=== PATIENT | male | born 1945 | race Caucasian/White ===

== ENCOUNTER → 2016-11-21 | Outpatient (CLI) | payer OTHER ==
[~2016-11-21] MED LIST: ASPI-321 OR; CLOP1TAB15 PO; FENO48TA9 PO; FISH OI1 OR; GARLIC PO; LEVO50TA6 PO; LSN5 PO; METF-383 PO; METO50TA16 PO; MULT-190 PO; NTRGSL/4 SL; OMEG10007 PO; PLV75 PO; ROSU40TA PO; [UNRECOGNIZED DRUG - OTHER] OR; [UNRECOGNIZED DRUG - OTHER] OR
--- NOTE | 2016-11-21 22:06 | MYOCARDIAL PERFUSION SCAN ---
PCP: Dr. Jonathon Bashir. ORDERING PHYSICIAN: Dr. Singer. TIME: 19:46 p.m. PROCEDURE: 1. Myocardial perfusion study performed in multiple views/images. 2. Exercise stress ECG per [facility] protocol. INDICATIONS: 1. CAD. 2. Angina. 3. Hypertension. CONSENT: Informed written consent was obtained. EXERCISE STRESS ECG: Baseline ECG demonstrated sinus rhythm at 71 beats per minute. Normal ECG. Exercise ECG demonstrated no significant ST changes. There was no arrhythmia. No chest pain reported. Mild dyspnea was reported. Study was terminated once target heart rate was obtained, but mostly due to the fact that he was having difficulty coordinating ambulation on a treadmill. Maximum heart rate was 133 beats per minute representing 91% maximum predicted heart rate. The resting blood pressure was 118/65 mmHg. Peak blood pressure was 158/68 mmHg. Poor exercise tolerance. 4.7 mets. Exercised 3 minutes 4 seconds in the standard [facility] protocol PROCEDURAL DETAILS: For the stress portion of the study 33.4 mCi of technetium-99m Cardiolite was injected intravenously at 11:35 a.m. on 11/21/2016. Fifteen minutes following the injection, imaging of the heart was performed in multiple projections. For the rest portion of the study, 11 mCi of technetium-99m Cardiolite was injected intravenously at 9:25 a.m. on the same day. One hour following the injection, imaging of the heart was performed in the same projections. FINDINGS: Rotating raw imaging demonstrated no significant motion artifact or lung uptake. Heart size appeared normal. Myocardial perfusion demonstrated a large area of reduced uptake involving the anterolateral wall (severely reduced uptake), and a lateral and inferolateral wall (moderately reduced uptake) from the base to mid left ventricle. This was reversible in post-stress imaging. Wall motion demonstrated hypokinesis in the anterolateral and lateral egan from base to mid ventricle. LEFT VENTRICULAR SYSTOLIC FUNCTIONL: EF of 58%. No significant transient ischemic dilation. IMPRESSION AND PLAN: 1. Abnormal myocardial perfusion study suggesting a large area of ischemia involving the base to mid portions of the anterolateral, lateral, and inferolateral egan. 2. No significant infarct suggested. 3. Hypokinesis of the anterolateral and lateral wall from base to mid ventricle. 4. Normal LV systolic function, ejection fraction 58%. 5. No chest pain. 6. No arrhythmia. 7. Appropriate blood pressure response to exercise. 8. Negative exercise ECG for ischemia at 91% maximum predicted heart rate. 9. Poor exercise tolerance. 10. The patient was notified of abnormal findings. He has not had any further angina as an outpatient. He will be seen in the office to discuss treatment plan.
== END | disposition home or self-care (01) ==
LOC: C.NUCL 09:01
PROVIDERS: ATTEND Internal Medicine Cardiovascular Disease
DX: I25.119 Atherosclerotic heart disease of native coronary artery with unspecified angina pectoris (principal); E78.00 Pure hypercholesterolemia, unspecified; I10 Essential (primary) hypertension

== ENCOUNTER → 2016-12-04 | Outpatient (CLI) | payer OTHER ==
--- NOTE | 2016-12-04 10:33 | DIAGNOSTIC IMAGING REPORT ---
CHEST 2 VIEWS ROUTINE CLINICAL HISTORY: I10 [id number] CAD in apache [id number] Angina pectoris COMPARISON STUDY: No previous studies for comparison. FINDINGS: The bones soft tissues and hemidiaphragms are normal. The cardiomediastinal silhouette is normal. The lungs are clear. The pulmonary vasculature is normal. IMPRESSION: Negative chest. Electronically signed by: Fam Mota M.D. 12/04/2016 10:32 AM Dictated Date/Time: 12/04/2016 10:31 AM
[2016-12-04 10:52] LABS: HEMATOCRIT 39.7 % (42-52); MEAN CELL VOLUME 88.6 fL (80-100); MEAN CORPUSCULAR HEMOGLOBIN 29.9 pg (25-34); MEAN CORPUSCULAR HGB CONC 33.8 g/dl (32-36); MEAN PLATELET VOLUME 10.3 fL (7.4-10.4); PLATELET COUNT 266 K/uL (130-400); RED BLOOD COUNT 4.48 M/uL (4.7-6.1)
[2016-12-04 11:04] LABS: PROTHROMBIN TIME (PATIENT) 10.7 SECONDS (9.0-12.0)
[2016-12-04 11:27] LABS: BLOOD UREA NITROGEN 11 mg/dl (7-18); BUN/CREATININE RATIO 11.4 (10-20); CALCIUM 8.6 mg/dl (8.5-10.1); CARBON DIOXIDE 28 mmol/L (21-32); CHLORIDE 107 mmol/L (98-107); GLUCOSE 109 mg/dl (70-99); POTASSIUM 4.2 mmol/L (3.5-5.1); SODIUM 141 mmol/L (136-145)
== END | disposition home or self-care (01) ==
LOC: C.RAD1850 10:05
PROVIDERS: ATTEND Internal Medicine Cardiovascular Disease
DX: I10 Essential (primary) hypertension (principal); I25.10 Atherosclerotic heart disease of native coronary artery without angina pectoris; R55 Syncope and collapse; R94.39 Abnormal result of other cardiovascular function study

== ENCOUNTER 2016-12-11 08:21 | Inpatient (IN) | payer OTHER ==
[2016-12-11] VITALS (14 sets, daily range): BP systolic 113–142; BP diastolic 66–84; PULSE 64–86; TEMP 36.5–36.8; O2SAT 92–97; Ht 172.7 cm; Wt 76.4 kg
[~2016-12-11] VITALS: Ht 172.7 cm; Wt 76.4 kg
[~2016-12-11 08:21] MED LIST changes: -CLOP1TAB15 PO; -GARLIC PO; -LEVO50TA6 PO; -LSN5 PO; -METF-383 PO; -METO50TA16 PO; -MULT-190 PO; -NTRGSL/4 SL; -OMEG10007 PO; -PLV75 PO; -ROSU40TA PO
[2016-12-11] MEDS ORDERED: LEVO50TA6 PO (09:13)
[2016-12-11] MEDS ORDERED: METF-383 PO (09:13)
[2016-12-11] MEDS ORDERED: METO50TA16 PO (09:13)
[2016-12-11] MEDS ORDERED: LSN5 PO (09:13)
[2016-12-11] MEDS ORDERED: ROSU40TA PO (09:13)
[2016-12-11] MEDS ORDERED: NTRGSL/4 SL (09:13)
[2016-12-11] MEDS ORDERED: GARLIC PO (09:13)
[2016-12-11] MEDS ORDERED: OMEG10007 PO (09:13)
--- NOTE | 2016-12-11 09:43 | History & Physical Bridge Note ---
H&P Re-Evaluation Bridge Note: I have examined the patient, reviewed the History & Physical and in the interval since the performance of the History & Physical I have noted the following changes of clinical significance: No changes noted
--- NOTE | 2016-12-11 09:44 | Procedure Note ---
Pre-Mod Sedation Assessment General Date of Moderate Sedation: Dec 11, 2016. Vital Signs: Vital Signs Past 12 Hours Date Time Temp Pulse Resp B/P Pulse Ox O2 Delivery O2 Flow Rate FiO2 12/11/16 08:54 36.5 65 16 142/79 97 Room Air Review Cardiovascular: regular rate, rhythm Abdomen: non tender, soft Lungs: lungs clear Pre-Sedation Airway Assessment Short Thick Neck: No Hx of Sleep Apnea: No Smoking Status: Never Smoker Procedure Planning Contraindications-for Mod Sed: None Yes Notes The planned sedation has been discussed with the patient and consent obtained. I have identified the patient, determined the appropriateness of sedation and have assessed the patient immediately prior to the procedure. All medicine(s) and interventions are by my order.
[2016-12-11] MEDS ORDERED: HEPARIN SOD (PORCINE) 1000 UNIT/ML 10 ML VIAL ONE (13:02)
[2016-12-11] MEDS ORDERED: NiCARDipine HCL INJ 2.5 MG/ML 10 ML AMP ONE (13:02)
[2016-12-11] MEDS ORDERED: FENTANYL CITRATE INJ 50 MCG/1 ML 2 ML VIAL ONE ×3 (13:03→15:45)
[2016-12-11] MEDS ORDERED: MIDAZOLAM HCL 1 MG/ML 2ML VIAL ONE ×3 (13:03→15:45)
[2016-12-11] MEDS ORDERED: NITROGLYCERIN/D5W 100MCG/ML 20ML SYR ONE (13:04)
--- NOTE | 2016-12-11 14:37 | Procedure Note ---
Post-Mod Sedation Assessment General Date of Moderate Sedation Dec 11, 2016. Vital Signs: Vital Signs Past 12 Hours Date Time Temp Pulse Resp B/P Pulse Ox O2 Delivery O2 Flow Rate FiO2 12/11/16 08:54 36.5 65 16 142/79 97 Room Air Review - Discharge Criteria Vital Signs Stable: Yes Alert/Oriented/Conversant: N/A Returned to Baseline Mental St: N/A Nausea Absent/Minimal: Yes Pain/Discomfort/Absent/Minimal: Yes Normal/Baseline Respirations: Yes Active Bleeding?: Yes
--- NOTE | 2016-12-11 14:53 | Cardiac Catheterization ---
Procedure Note Procedure Date Dec 11, 2016. Pre-Procedure Diagnosis Positive Stress Test, CAD AUC Score 9 Post-Procedure Diagnosis Severe CAD, Normal Intracardiac Pressures Procedure(s) Performed Coronary Angiography, Left Heart Cath Police Officer Crime Prevention Dr. Singer Snowboard Designer(s) Plunkett Estimated Blood Loss < 20 ml Medication(s) Fentanyl, Heparin, Nicardipine, Versed, Lidocaine 1% Summary of Findings Coronary angiography: 1. Left main coronary artery: Distal LM CA 20%. 2. Left anterior descending: The LAD had calcifications noted in the proximal to mid section. Proximal LAD 30%. Mid LAD diffuse 40%. Distal LAD 40%. Small caliber D1 with diffuse 80% stenosis in the midportion. Small D2. 3. Circumflex: The circumflex is a large caliber vessel. Proximal circumflex 40%. Mid circumflex 95% at bifurcation of large OM1. Proximal OM1 98%. Distal circumflex 70% and small caliber in this area, at the bifurcation of a large OM2. Ostial OM2 80%. 4. 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 It was visualized with AL1 diagnostic catheter. Mid RCA 90% followed by 100% occlusion. It fills via right to right bridging collaterals and [id number] collaterals. Distal RCA 70%. Small PDA without angiographic evidence of CAD. Left heart catheterization: 1. Left ventriculography was not performed. 2. Mildly elevated LVEDP; 13 mmHg. 3. No significant aortic stenosis. Peak to peak gradient across the aortic valve was approximately 4 mmHg. Impression: 1. Severe CAD within the circumflex system, including large OM1 and OM2 vessels. 2. Severe CAD within the RCA, with right to right and [id number] collaterals. 3. Severe CAD involving small caliber D1. 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 5. Nonobstructive CAD involving the left main coronary artery, LAD, and proximal circumflex. 6. No significant aortic stenosis. 7. Mildly elevated LVEDP. Plan: 1. Interventional Cardiology was asked to review the images and consider PCI of circumflex/OM system. Hemodynamics Rest Ao: 123/54 Final Ao: 139/61 LV: 137/2 with LVEDP 13 mmHg Recommendations PCI without planned CABG Specimens None Radiation Exposure (mGy) 1307 mGy. Fluoro time 9.8 min Contrast (mls) 105 ml Procedural Complication(s) None Disposition remained in cathead operator for PCI ACC Data Cardiac Status Clinical evaluation leading to the procedure CAD Presntation: Stable angina, Positive Stress Test Anginal Classification: CCS III Heart Failure: No Cardiogenic Shock w/in 24Hrs: No Cardiac Arrest w/in 24Hrs: No Imaging studies past 6 months: Yes Stress studies past 6 months: Yes Standard Exercise Stress Test: Yes - Negative Stress Echocardiogram: No Stress Testing w/SPECT MPI: Yes - Positive, Risk/Extent of Ischemia (High) Cardiac CTA: No Coronary Anatomy Dominant: Right Left Main (% Stenosis): Distal (20%) LAD (% Stenosis): Proximal (30%), Mid (40%), Distal (40%) D1 (% Stenosis): Mid (80%) D2 (% Stenosis): Normal Circumflex (% Stenosis): Proximal (40%), Mid (95%), Distal (70%) OM1 (% Stenosis): Proximal (98%) OM2 (% Stenosis): Ostial (80%) RCA (% Stenosis): Mid (90% followed by 100%), Distal (70%) R PDA (% Stenosis): Normal Left Ventricular Angiography EF (%): n/a Diagnostic Physician's Name: Niels Singer MD Status: Elective Closure Device Percutaneous Entry Location: Radial Closure Device: Radial Band Recommendations: PCI without planned CABG
[2016-12-11] MEDS ORDERED: EPTIFIBATIDE 2 MG/ML 10 ML VIAL IV ONE (16:12)
[2016-12-11] MEDS ORDERED: EPTIFIBATIDE 0.75 MG/ML 75MG VIAL IV ONE (16:12)
[2016-12-11] MEDS ORDERED: CLOPIDOGREL BISULFATE 300 MG TAB PO ONE (16:14)
[2016-12-11] MEDS ORDERED: ACETAMINOPHEN 325 MG TAB PO PRN (17:00)
[2016-12-11] MEDS ORDERED: ONDANSETRON INJ 2 MG/ML 2 ML VIAL IV PRN (17:00)
[2016-12-11] MEDS ORDERED: EPTIFIBATIDE BOLUS / DRIP IV ONE (17:00)
[2016-12-11] MEDS ORDERED: NITROGLYCERIN 0.4 MG SL PER TAB CHARGE SL SCH (17:00)
[2016-12-11] MEDS ORDERED: SODIUM CHLORIDE 0.9% 1000ML 1,000 ML IV SCH (17:00)
[2016-12-11] MEDS ORDERED: ATROPINE SULFATE 0.1 MG/ML 5ML SYR IV PRN (17:00)
[2016-12-11] MEDS: EPTIFIBATIDE INJ 75 MG PREMIXED IV SCH (18:10)
[2016-12-11] MEDS: METOPROLOL TARTRATE 50 MG TAB PO SCH (21:42)
--- NOTE | 2016-12-11 23:52 | Cardiac Catheterization ---
Procedure Note Procedure Date Dec 11, 2016. Pre-Procedure Diagnosis Angina, Positive Stress Test AUC Score 7 Post-Procedure Diagnosis Severe CAD, Successful PCI Procedure(s) Performed PTCA, Drug Eluting Stent Operating Room Orderly Dr. Triana Fitter / Welder(s) Dimitrios Estimated Blood Loss 25 Medication(s) Fentanyl, Heparin, Nitroglycerin, Versed, Lidocaine 1% Summary of Findings Indication: Positive stress test For full coronary angiography details please see cath report from Dr. Singer from today. Briefly patient with grossly positive stress test with significant lateral wall ischemia. Found to have severe mid circumflex, OM1, OM2 disease and decision made to proceed with intervention. Arterial Closure: TR Band PCI: Antithrombotic therapy: Heparin, Plavix, integrilin Procedure: BMW wire place in 1st OM Prowater wire placed in 2nd OM Mid circumflex, ostial OM2 lesion pre-dilated with 2.0 compliant balloon Unable to pass 2.0 balloon into 1st OM. Predilated with 1.5 then new 2.0 balloon. Predilated mid circumflex and OM2 lesions with 2.5 balloon. Unable to deliver stent to OM2 lesion due to mid circumflex stenosis/tortuosity Mid OM2 pre-dilated with 3.0 compliant balloon with appropriate expansion at nominal pressures Still unable to deliver MARIO to OM2 lesion despite use of long BMW wire as saul wire. Prowater/short BMW removed. Long BMW exchanged via OTW Xenith Bankon for mailman wire. Guideliner placed into mid circumflex with the aid of OTW ballon. 2.5 x [address] to OM2 Stent post-dilated with stent balloon At this point patient restless, significant contrast and radiation used - as patient chest pain free with no flow limiting dissection decision made to complete procedure At completion of procedure OM2 stent reasonably well expanded without significant residual stenosis. Distal circumflex subtotally occluded after stent placement. Mid circumflex with residual 50% stenosis. OM1 with residual 90% proximal stenosis. Summary: 1. Complex severe circumflex disease 2. Successful PCI of OM2 with single MARIO (Resolute 2.5 x 14). Stent placement complicated by small distal circumflex subtotal occlusion 3. PTCA of OM1 and mid circumflex with severe, moderate residual stenosis. Recommendations: Admit to Telemetry for further observation Continue integrilin for 12hrs Loaded with Plavix 600 mg in photographic laboratory technician. Continue DAPT with aspirin and plavix for 1 year. High-dose statin, Beta-estefany, GENI per Dr. Singer With high radiation exposure patient counseled on signs and symptoms of radiation skin injury. In the setting of moderate-severe residual mid circumflex/OM1 disease and significant ischemia on recent stress will plan for repeat PCI attempt with stent placement to OM1/circumflex bifurcation via femoral artery in 1-2 weeks. Hemodynamics Rest Ao: 139/61/94 Final Ao: 154/73/109 LV: n/a Recommendations PCI without planned CABG Specimens None Radiation Exposure (mGy) 6999 Contrast (mls) 280 Visipaque Fluids (cc crystalloids) 413 Drains None Anesthesia Moderate Procedural Complication(s) None Disposition PCU ACC Data Cardiac Status Clinical evaluation leading to the procedure CAD Presntation: Positive Stress Test Anginal Classification: CCS III Heart Failure: No, NYHA Class: CCS I Cardiogenic Shock w/in 24Hrs: No Cardiac Arrest w/in 24Hrs: No Standard Exercise Stress Test: No Stress Echocardiogram: No Stress Testing w/SPECT MPI: Yes - Positive, Risk/Extent of Ischemia (High) Cardiac CTA: No Coronary Anatomy Circumflex (% Stenosis): Mid (90) OM1 (% Stenosis): Proximal (99) OM2 (% Stenosis): Ostial (95) Diagnostic Physician's Name: Thong Triana MD Closure Device Percutaneous Entry Location: Radial Closure Device: Radial Band Recommendations: PCI without planned CABG Lesion Segment Name: OM2 Culprit Artery: Yes Stenosis Prior to Rx (%): 95 Chronic Total Occlusion: No IVUS: No FFR: No Pre-Procedure RALPH Flow: 3 Previously Treated Lesion: No Lesion Complexity: High/C Lesion Length (mm): 12 Thrombus Present: No Bifurcation Lesion: Yes Guidewire Across Lesion: Yes Guidewire: Stenosis Post-Procedure (%): 5 Post-Procedure RALPH Flow: 3 Device(s) Deployed: Yes Type of Device(s): 2.5 x 15 Resolute MARIO Lesion #2 Segment Name: mid circumflex Culprit Artery: Yes Stenosis Prior to Rx (%): 90 Chronic Total Occlusion: No IVUS: No FFR: No Pre-Procedure RALPH Flow: 3 Previously Treated Lesion: No Lesion Complexity: High/C Lesion Length (mm): 15 Thrombus Present: No Bifurcation Lesion: Yes Guidewire Across Lesion: Yes Intraprocedure Events Significant Dissection: No Perforation: No
[2016-12-12] VITALS (7 sets, daily range): BP systolic 117–147; BP diastolic 66–83; PULSE 58–81; TEMP 36.7–37.3; O2SAT 94–97
[2016-12-12] MEDS: EPTIFIBATIDE INJ 75 MG PREMIXED IV SCH (02:20)
[2016-12-12] MEDS ORDERED: Integrelin infusion --> STOP ORDER ONE (05:00)
[2016-12-12] MEDS ORDERED: LEVOTHYROXINE 50 MCG TAB PO SCH (06:00)
[2016-12-12 07:56] LABS: BASO % 0.4 %; BASO ABS # 0.04 K/uL (0-0.2); COMPLETE YES; EOS % 3.3 %; HEMATOCRIT 40.5 % (42-52); IG% 0.2 %; LYMPH % 17.7 %; LYMPH ABS # 1.79 K/uL (1.2-3.4); MEAN CELL VOLUME 86.4 fL (80-100); MEAN CORPUSCULAR HEMOGLOBIN 30.1 pg (25-34); MEAN CORPUSCULAR HGB CONC 34.8 g/dl (32-36); MEAN PLATELET VOLUME 9.8 fL (7.4-10.4); MONO % 6.9 %; NEUT % 71.5 %; PLATELET COUNT 218 K/uL (130-400); RED BLOOD COUNT 4.69 M/uL (4.7-6.1)
[2016-12-12 08:27] LABS: BUN/CREATININE RATIO 12.3 (10-20); CALCIUM 8.8 mg/dl (8.5-10.1); CREATININE 0.95 mg/dl (0.60-1.40); POTASSIUM 3.9 mmol/L (3.5-5.1)
[2016-12-12] MEDS: METOPROLOL TARTRATE 50 MG TAB PO SCH (08:57)
[2016-12-12] MEDS ORDERED: INFLUENZA VIRUS QUAD VACCINE 0.5 ML SYR IM. ONE (09:00)
[2016-12-12] MEDS ORDERED: ROSUVASTATIN CALCIUM 20 MG TAB PO SCH (09:00)
[2016-12-12] MEDS ORDERED: LISINOPRIL 5 MG TAB PO SCH (09:00)
[2016-12-12] MEDS ORDERED: ASPIRIN 81 MG ECTAB PO SCH (09:00)
[2016-12-12] MEDS ORDERED: CLOPIDOGREL BISULFATE 75 MG TAB PO SCH (09:00)
[2016-12-12] MEDS ORDERED: INFLUENZA ADMINISTRATION CHARGE ONE (09:00)
[2016-12-12] MEDS ORDERED: PLV75 PO (14:54)
--- NOTE | 2016-12-12 14:58 | Discharge Instructions ---
Discharge Instructions Procedure Procedure Date: Dec 12, 2016. Reason for Visit: *Enmanuel To Do Abnormal Nuclear Stress Test. Discharge Discharge Date: Dec 12, 2016. Discharge Diagnosis: Coronary artery disease post cardiac stent Last Recorded Wt (Kilograms): 76.400 Medications Stopped Medication(s): Hold Metformin for 48 hours post procedure Anesthesia Post Anesthesia Instructions: Instructions Activity Recommendations: limitations as noted below Allergies: Coded Allergies: No Known Allergies (Verified , 01/18/10) Provider Instructions ACTIVITY RECOMMENDATIONS: It is common to feel weak and fatigue for a few days. * Do not drive or operate any motorized equipment for the next two days. * Limit stair usage (2 or 3 trips a day only) for the next three days. * Do not lift anything heavier than 10 pounds for the next three days. * Do not engage in vigorous exercise or any sports for the next five days. * You may shower the day after your procedure, but do not immerse the area for three days. Cleanse the site gently with soap and water. SPECIAL CARE INSTRUCTIONS: * You may replace the pressure dressing or band-aid the morning after the procedure. * After your procedure, it is normal to have a small bruise or small lump at the site. Examine your site daily for any change in the bruise or lump, redness, swelling, drainage or numbness. Notify your doctor if any change. BLEEDING: * If there is a small amount of bleeding at the site, lie down and apply firm pressure with a clean cloth for ten minutes. When the bleeding stops, lie quietly keeping the procedure limb straight for six hours. Notify your doctor as soon as possible. * If the bleeding does not stop after ten minutes or if there is a large amount of bleeding or spurting, call 911 immediately. Continue to lie down and hold firm pressure until help arrives. SKIN IRRITATION: * You may experience some redness and/or swelling in the area where radiation was administered. If any skin irritation occurs, please contact your family physician. FOLLOW UP VISIT: Keep any scheduled doctor appointments. Follow Up Additional Instructions: If increased arm swelling, redness, pain or decreased sensation. Call Dr. Triana [phone] Follow-up with: Will arrange for follow-up Procedure. Dr. Triana/Enmanuel's office will call you. Emma Rao Recommendations: Call your doctor if: * Temperature above 101 degrees * Pain not relieved by pain medicine ordered * There is increased drainage or redness from any incision * You have any unanswered questions or concerns. Your Doctors Instructions noted above were prepared by provider Abdullahi Triana. Patient Signature Section: Patient Instructions Signature Page Abdon Missy Patient (or Guardian) Signature/Date: I have read and understand the instructions given to me by my caregivers. Caregiver/RN/Doctor Signature/Date: The above-named patient and/or guardian has received patient instructions on this date. + Original Patient Signature Page (only) stays with chart. Please make copy for patient.
[2016-12-22] MEDS ORDERED: MULT-190 PO (06:59)
--- NOTE | 2016-12-23 01:29 | DISCHARGE SUMMARY ---
PRINCIPAL DIAGNOSES: 1. Coronary artery disease. 2. Positive stress test. 3. Intermittent chest pain. PROCEDURES: 1. Diagnostic catheterization -- Findings: Left main, 20% stenosis. LAD, 30% proximal, 40% mid, 40% distal, small D1 with 80% diffuse disease. 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 2. PCI. Successful PCI of OM2 with a single drug-eluting stent (Resolute 2.5), procedure complicated by small distal circumflex subtotal occlusion. Also underwent PTCA of OM1 in mid-circumflex with [id number] residual stenosis. CONSULTATIONS: None. HISTORY OF PRESENT ILLNESS: Mr. Louis is a very pleasant 71-year-old man, with a history of known coronary artery disease, diabetes, hypertension, hyperlipidemia, followed by Dr. Maxwell as an outpatient, who had had intermittent episodes of chest discomfort over the preceding month, prior to presentation. He had undergone a nuclear stress test, which showed a large area of ischemia involving the anterolateral, lateral, inferolateral egan. As a result, the decision was made to proceed with cardiac catheterization. HOSPITAL COURSE: Patient underwent diagnostic coronary angiography with Dr. Maxwell. 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 A decision was made to proceed with PCI. PCI was complicated by tortuosity, calcification and issues with guide support from the right radial artery. Eventually, was able to place one drug-eluting stent to ostial OM2 with reasonable result, but noted subtotal occlusion of small distal circumflex. Balloon angioplasty of OM1 and mid circumflex was done with [id number] residual stenosis. Due to high contrast and radiation use, the decision was made to abort the procedure and bring back for a staged stenting of OM1 and mid circumflex. Post procedure, the patient was admitted, for observation, to telemetry. His post-procedure course was complicated by significant right radial access site hematoma, which spread to his forearm above his elbow and down into his hand. Patient had significant ecchymosis involving most of his hand, but had intact pulses, intact distal sensation and capillary refill. In that setting, patient was monitored closely, no further intervention was thought necessary and symptoms were noted to improve over the course of the night post his procedure. The day of the discharge, hospital day #2, the patient was feeling well, denied any chest pain, his arm was improving and he was thought safe for discharge. He was discharged with aspirin and Plavix as well as his prior cardiac regimen with plan for outpatient followup for continued management of his access site hematoma and for scheduling of repeat PCI. DISCHARGE MEDICATIONS: 1. Aspirin 81. 2. Fish oil 1 capsule p.o. b.i.d. 3. Levothyroxine 50 mcg 1 tablet p.o. daily. 4. Lisinopril 5daily. 5. Metformin 850 mg b.i.d. held for the first 48 hours post procedure. 6. Metoprolol 50 mg b.i.d. 7. Nitroglycerin sublingual tablet 0.4 mg p.r.n. 8. Rosuvastatin 40 mg daily. 9. Plavix 75 mg daily. FOLLOWUP: The patient will follow up in the cardiology clinic in the next one week. MTDD
== END 2016-12-12 15:55 | disposition home or self-care (01) | DRG 247 ==
LOC: C.CATH 08:21 → C.2T 16:56
PROVIDERS: ADMIT Internal Medicine Interventional Cardiology; ATTEND Internal Medicine Cardiovascular Disease
PROC: 027034Z Dilation of Coronary Artery, One Artery with Drug-eluting Intraluminal Device, Percutaneous Approach (ICD-10-PCS; 2016-12-11)
PROC: 4A023N7 Measurement of Cardiac Sampling and Pressure, Left Heart, Percutaneous Approach (ICD-10-PCS; principal; 2016-12-11 09:00)
DX: I25.118 Atherosclerotic heart disease of native coronary artery with other forms of angina pectoris (principal); R94.39 Abnormal result of other cardiovascular function study

== ENCOUNTER 2016-12-22 07:02 | Observation (INO) | payer OTHER ==
[2016-12-22] VITALS (11 sets, daily range): BP systolic 117–145; BP diastolic 63–88; PULSE 63–70; TEMP 36.4–37; O2SAT 96–99; Ht 172.7 cm; Wt 75.0 kg
[~2016-12-22] VITALS: Ht 172.7 cm; Wt 75.0 kg
[~2016-12-22 07:02] MED LIST changes: -FENO48TA9 PO; -FISH OI1 OR; +GARLIC PO; +LEVO50TA6 PO; +LSN5 PO; +METF-383 PO; +METO50TA16 PO; +MULT-190 PO; +NTRGSL/4 SL; +OMEG10007 PO; +PLV75 PO; +ROSU40TA PO; -[UNRECOGNIZED DRUG - OTHER] OR
[2016-12-22] MEDS ORDERED: CLOP1TAB15 PO (07:44)
[2016-12-22] MEDS ORDERED: FENTANYL CITRATE INJ 50 MCG/1 ML 2 ML VIAL ONE (07:57)
[2016-12-22] MEDS ORDERED: NiCARDipine HCL INJ 2.5 MG/ML 10 ML AMP ONE (07:57)
[2016-12-22] MEDS ORDERED: HEPARIN SOD (PORCINE) 1000 UNIT/ML 10 ML VIAL ONE ×2 (07:57→09:15)
[2016-12-22] MEDS ORDERED: MIDAZOLAM HCL 1 MG/ML 2ML VIAL ONE (07:57)
[2016-12-22] MEDS ORDERED: NITROGLYCERIN/D5W 100MCG/ML 20ML SYR ONE (07:58)
[2016-12-22] MEDS ORDERED: CLOPIDOGREL BISULFATE 300 MG TAB PO ONE (09:49)
[2016-12-22] MEDS ORDERED: ACETAMINOPHEN 325 MG TAB PO PRN (10:30)
[2016-12-22] MEDS ORDERED: ONDANSETRON INJ 2 MG/ML 2 ML VIAL IV PRN (10:30)
[2016-12-22] MEDS ORDERED: NITROGLYCERIN 0.4 MG SL PER TAB CHARGE SL SCH (10:30)
[2016-12-22] MEDS ORDERED: SODIUM CHLORIDE 0.9% 1000ML 1,000 ML IV SCH (13:00)
[2016-12-22] MEDS ORDERED: IV FLUIDS COMPLETED PRN (16:15)
[2016-12-22] MEDS: METOPROLOL TARTRATE 50 MG TAB PO SCH (19:45)
[2016-12-22] MEDS: CEROVITE ADV FORMULA TAB PO SCH (19:45)
--- NOTE | 2016-12-22 23:04 | History and Physical ---
History & Physical Date Dec 22, 2016. History of Present Illness The patient is a 71 year old male with complaints of angina, prior positive stress test with significant lateral wall ischemia. Previously underwent cardiac cath with PCI 10 days ago. Able to place stent to distal circumflex but prolonged procedure requiring large amounts of contrast, radiation. Decision made to stop procedure and plan for staged PCI of mid circumflex, OM. Patient returns today for that planned procedure. Past Medical/Surgical History Medical Problems: (1) CAD (coronary artery disease) Additional History Hepatic Disease: No Endocrine Disorder: No Kidney Disease: Yes Hypertension: Yes Heart Disease: Yes Bleeding Tendencies: No Infectious Diseases: No Allergies Coded Allergies: No Known Allergies (Verified , 01/18/10) Home Medications Scheduled Aspirin (Aspirin Adult Low Strengt), 81 MG OR DAILY Clopidogrel (Plavix), 75 MG PO DAILY Fish Oil (Natalbany-3), 1 CAP PO BID Levothyroxine Sodium (Levothyroxine Sodium), 1 TAB PO DAILY Lisinopril (Lisinopril), 1 TAB PO DAILY Metformin Hcl (Glucophage), 850 MG PO BID Metoprolol Tartrate (Lopressor) (Lopressor), 1 TAB PO BID Nitroglycerin (Nitrostat), 1 TAB SL UD Ocuvite Preservision (Ocuvite Preservision), 1 TAB PO BID Rosuvastatin Calcium (Crestor), 1 TAB PO DAILY [Garlic TABS], 1 TAB PO BID Physical Examination Skin: warm/dry Head: normocephalic Neck: supple Respiratory/Chest: lungs clear, normal breath sounds Cardiovascular: regular rate, rhythm, no edema Abdomen / GI: normal bowel sounds Extremities: normal inspection Neurologic/Psych: no motor/sensory deficits ASA Classification: ASA Class II Plan of Treatment Proceed to PCI
--- NOTE | 2016-12-22 23:05 | Procedure Note ---
Pre-Mod Sedation Assessment General Date of Moderate Sedation: Dec 22, 2016. Vital Signs: Vital Signs Past 12 Hours Date Time Temp Pulse Resp B/P Pulse Ox O2 Delivery O2 Flow Rate FiO2 12/22/16 20:00 Room Air 12/22/16 19:38 37.0 68 25 117/63 98 Room Air 12/22/16 16:00 Room Air 12/22/16 15:32 36.6 65 20 128/77 98 Room Air 12/22/16 14:00 66 19 141/76 99 Room Air 12/22/16 13:00 36.6 70 22 127/88 99 Room Air 12/22/16 12:30 69 18 132/83 99 Room Air 12/22/16 12:00 Room Air 12/22/16 11:15 63 22 140/78 98 Room Air Review Cardiovascular: regular rate, rhythm, no edema Abdomen: normal bowel sounds, non tender, soft Lungs: chest non-tender, lungs clear, normal breath sounds, no respiratory distress Airway Class: II Pre-Sedation Airway Assessment Oral Cavity: WNL Able to Visualize Vocal Cords: No Short Thick Neck: No Hx of Sleep Apnea: No Smoking Status: Never Smoker Mallampati Classification: Class II ASA Classification: Class II Procedure Planning Contraindications-for Mod Sed: None Yes Notes The planned sedation has been discussed with the patient and consent obtained. I have identified the patient, determined the appropriateness of sedation and have assessed the patient immediately prior to the procedure. All medicine(s) and interventions are by my order.
--- NOTE | 2016-12-22 23:08 | Procedure Note ---
Post-Mod Sedation Assessment General Date of Moderate Sedation Dec 22, 2016. Vital Signs: Vital Signs Past 12 Hours Date Time Temp Pulse Resp B/P Pulse Ox O2 Delivery O2 Flow Rate FiO2 12/22/16 20:00 Room Air 12/22/16 19:38 37.0 68 25 117/63 98 Room Air 12/22/16 16:00 Room Air 12/22/16 15:32 36.6 65 20 128/77 98 Room Air 12/22/16 14:00 66 19 141/76 99 Room Air 12/22/16 13:00 36.6 70 22 127/88 99 Room Air 12/22/16 12:30 69 18 132/83 99 Room Air 12/22/16 12:00 Room Air 12/22/16 11:15 63 22 140/78 98 Room Air Review - Discharge Criteria Vital Signs Stable: Yes Alert/Oriented/Conversant: Yes Returned to Baseline Mental St: Yes Nausea Absent/Minimal: Yes Pain/Discomfort/Absent/Minimal: Yes Normal/Baseline Respirations: Yes Active Bleeding?: No Pt Received D/C Instructions: N/A Prescriptions Given: None Specific Proced. D/C Criteria Distal Pulses Present (Cardiac: Yes Groin site assessed-Card Cath: N/A Voided Prior To Discharge: N/A Discharged Patients Adult Escort/Transportation: Yes
--- NOTE | 2016-12-22 23:30 | Cardiac Catheterization ---
Procedure Note Procedure Date Dec 22, 2016. Pre-Procedure Diagnosis Angina, Positive Stress Test, CAD AUC Score 7 Post-Procedure Diagnosis Severe CAD, Successful PCI, Normal Intracardiac Pressures Procedure(s) Performed Coronary Angiography, Left Heart Cath, Drug Eluting Stent Lawn Sprinkler Installer Dr. Triana Green Energy Marketing Analyst(s) Anthony Estimated Blood Loss 25 Medication(s) Clopidogrel, Fentanyl, Heparin, Nitroglycerin, Versed, Lidocaine 1% Summary of Findings Indication: Staged PCI for angina/high risk stress test Access: 6Fr Right Femoral Artery Catheters: EBU 4, EBU 3.75 Findings: Patient underwent PCI with stent placement to OM2 10 days ago. At that time had PTCA to mid circumflex, OM1 Angiography revealed only mild residual stenosis in OM1, mid circumflex. OM2 stent well expanded and flow in prior subtotal occlusion of distal circumflex improved. PCI: Antithrombotic therapy: Heparin Procedure: LM cannulated with EBU 3.75 Long whisper wire passed across OM1 lesion into distal vessel Whisper wire exchanged for Mailman wire OM1 predilated with 2.5 balloon Long BMW wire placed into distal OM2 2.5 x 14 Resolute MARIO placed at ostium of OM1. Post dilated with stent balloon Long BMW wire exchanged fro Mailman wire Mid circumflex lesion predilated with 3.0 OTW balloon Eventually able to pass a 3.0 x 9 Resolute MARIO to mid circumflex with aid of a Guideliner Stent placed just distal take-off of OM1. Post dilated with stent balloon. Post procedure RALPH 3 flow, stents well expanded with minimal residual stenosis and no apparent coronary complications. Arterial Closure: AngioSeal Summary: 1. Successful PCI of mid circumflex and ostial OM1 with 2 MARIO (3.0 x 9, 2.5 x 14 Resolute) Recommendations: Admit for observation Reloaded with 300 mg Clopidogrel in wheelabrator operator Continue current cardiac regimen Follow-up with Dr. Singer as outpatient Cardiac Rehab Hemodynamics Rest Ao: 135/64/94 Final Ao: 122/61/89 LV: -- Recommendations PCI without planned CABG Specimens None Radiation Exposure (mGy) 4351 Contrast (mls) 240 Visipaque Fluids (cc crystalloids) 165 Drains None Anesthesia moderate Procedural Complication(s) None Disposition PCU ACC Data Cardiac Status Clinical evaluation leading to the procedure CAD Presntation: Stable angina, Positive Stress Test Anginal Classification: CCS III Heart Failure: No, NYHA Class: CCS I Cardiogenic Shock w/in 24Hrs: No Cardiac Arrest w/in 24Hrs: No Imaging studies past 6 months: Yes Stress studies past 6 months: Yes Standard Exercise Stress Test: No Stress Echocardiogram: No Stress Testing w/SPECT MPI: Yes - Positive, Risk/Extent of Ischemia (High) Cardiac CTA: No Coronary Anatomy Dominant: Right Circumflex (% Stenosis): Mid (50) OM1 (% Stenosis): Proximal RCA (% Stenosis): Mid (occluded) Diagnostic Physician's Name: Thong Triana MD Closure Device Percutaneous Entry Location: Femoral Closure Device: Angio-Seal Recommendations: PCI without planned CABG PCI Indication: Staged PCI, + Stress Test Lesion Segment Name: mid circumflex Culprit Artery: Yes Stenosis Prior to Rx (%): 50 (90 prior to PTCA 10d ago) Chronic Total Occlusion: No IVUS: No FFR: No Ratio: less than or equal to 0.75% Pre-Procedure RALPH Flow: 3 Previously Treated Lesion: No Lesion Complexity: High/C Lesion Length (mm): 8 Thrombus Present: No Bifurcation Lesion: Yes Guidewire Across Lesion: Yes Guidewire: Stenosis Post-Procedure (%): 0 Post-Procedure RALPH Flow: 3 Device(s) Deployed: Yes Intraprocedure Events Significant Dissection: No Perforation: No
[2016-12-23] VITALS: BP 121/63; PULSE 64; TEMP 36.9; O2SAT 95
[2016-12-23 04:00] VITALS: BP 112/55; PULSE 64; TEMP 36.8; O2SAT 95
[2016-12-23] MEDS ORDERED: LEVOTHYROXINE 50 MCG TAB PO SCH (06:00)
[2016-12-23 06:43] LABS: BASO % 0.7 %; BASO ABS # 0.05 K/uL (0-0.2); COMPLETE YES; EOS % 5.5 %; HEMATOCRIT 35.9 % (42-52); IG% 0.1 %; LYMPH % 19.9 %; LYMPH ABS # 1.38 K/uL (1.2-3.4); MEAN CELL VOLUME 87.1 fL (80-100); MEAN CORPUSCULAR HEMOGLOBIN 29.6 pg (25-34); MEAN PLATELET VOLUME 9.5 fL (7.4-10.4); MONO % 10.1 %; NEUT % 63.7 %; PLATELET COUNT 256 K/uL (130-400); RED BLOOD COUNT 4.12 M/uL (4.7-6.1); WHITE BLOOD COUNT 6.93 K/uL (4.8-10.8)
[2016-12-23 07:23] LABS: BUN/CREATININE RATIO 9.2 (10-20); CALCIUM 8.5 mg/dl (8.5-10.1); CREATININE 1.1 mg/dl (0.60-1.40); POTASSIUM 4.2 mmol/L (3.5-5.1)
[2016-12-23 07:46] VITALS: BP 138/73; PULSE 64; TEMP 37; O2SAT 96
[2016-12-23] MEDS: METOPROLOL TARTRATE 50 MG TAB PO SCH (07:50)
[2016-12-23] MEDS: CEROVITE ADV FORMULA TAB PO SCH (07:50)
--- NOTE | 2016-12-23 08:58 | Discharge Instructions ---
Discharge Instructions Procedure Procedure Date: Dec 23, 2016. Reason for Visit: PCI. Discharge Discharge Date: Dec 23, 2016. Last Recorded Wt (Kilograms): 75.000 Instructions Activity Recommendations: limitations as noted below Recommended Home Diet: resume previous diet Allergies: Coded Allergies: No Known Allergies (Verified , 01/18/10) Provider Instructions ACTIVITY RECOMMENDATIONS: It is common to feel weak and fatigue for a few days. * Do not drive or operate any motorized equipment for the next three days. * Limit stair usage (2 or 3 trips a day only) for the next three days. * Do not lift anything heavier than 10 pounds for the next three days. * Do not engage in vigorous exercise or any sports for the next five days. * You may shower the day after your procedure, but do not immerse the area for three days. Cleanse the site gently with soap and water. SPECIAL CARE INSTRUCTIONS: * You may replace the pressure dressing or band-aid the morning after the procedure. * After your procedure, it is normal to have a small bruise or small lump at the site. Examine your site daily for any change in the bruise or lump, redness, swelling, drainage or numbness. Notify your doctor if any change. BLEEDING: * If there is a small amount of bleeding at the site, lie down and apply firm pressure with a clean cloth for ten minutes. When the bleeding stops, lie quietly keeping the procedure limb straight for six hours. Notify your doctor as soon as possible. * If the bleeding does not stop after ten minutes or if there is a large amount of bleeding or spurting, call 911 immediately. Continue to lie down and hold firm pressure until help arrives. SKIN IRRITATION: * You may experience some redness and/or swelling in the area where radiation was administered. If any skin irritation occurs, please contact your family physician. FOLLOW UP VISIT: Keep any scheduled doctor appointments. Follow Up Follow-up with: Follow-up with Cardiology clinic in 4 weeks. mEma Rao Recommendations: Call your doctor if: * Temperature above 101 degrees * Pain not relieved by pain medicine ordered * There is increased drainage or redness from any incision * You have any unanswered questions or concerns. Your Doctors Instructions noted above were prepared by provider Abdullahi Triana. Patient Signature Section: Patient Instructions Signature Page Abdon Louis Patient (or Guardian) Signature/Date: I have read and understand the instructions given to me by my caregivers. Caregiver/RN/Doctor Signature/Date: The above-named patient and/or guardian has received patient instructions on this date. + Original Patient Signature Page (only) stays with chart. Please make copy for patient.
[2016-12-23] MEDS ORDERED: ROSUVASTATIN CALCIUM 20 MG TAB PO SCH (09:00)
[2016-12-23] MEDS ORDERED: CLOPIDOGREL BISULFATE 75 MG TAB PO SCH (09:00)
[2016-12-23] MEDS ORDERED: LISINOPRIL 5 MG TAB PO SCH (09:00)
[2016-12-23] MEDS ORDERED: ASPIRIN 81 MG ECTAB PO SCH (09:00)
[2016-12-23 09:31] VITALS: BP 138/73; PULSE 64; TEMP 37; O2SAT 96
--- NOTE | 2016-12-30 01:12 | DISCHARGE SUMMARY ---
DISCHARGE DIAGNOSIS: Coronary artery disease status post PCI with drug-eluting stents placed to circumflex and OM. PROCEDURE: PCI as above. CONSULTATIONS: None. HISTORY OF PRESENT ILLNESS: Mr. Louis is a very pleasant 71-year-old gentleman with a history of coronary artery disease, type 2 diabetes, hypertension, dyslipidemia, who had a high risk positive stress test earlier this year, for which he underwent diagnostic coronary angiography 10 days ago. During that procedure, he was noted to have severe disease in his mid circumflex, ostial OM1 and ostial OM2. Decision was made to pursue percutaneous revascularization. Procedure was complicated by tortuosity, calcification, and angulated takeoff of his circumflex and after extended procedure, we were able to place a stent to his ostium of OM2. Due to length of procedure, procedure was stopped at that time with plan to further intervene on the mid circumflex and OM1 in a staged fashion. The patient is brought back currently to undergo that procedure. HOSPITAL COURSE: The patient underwent planned PCI via the right femoral artery. He was noted on initial angiography to have improved residual stenosis in the ostial OM1 following angiography as well as mid circumflex and had return of flow in his distal circumflex which had previously been subtotally occluded after stent placement. PCI procedure was successfully completed with the aid of a Guideliner with placement of a 2.5 x 14 Resolute drug-eluting stent to the ostium of his OM1 and later a 3.0 x 9 Resolute drug-eluting stent to his mid circumflex. Post procedure, a good angiographic result was obtained with no apparent complications. He was admitted for observation overnight. He had no significant groin complications. No recurrent chest pain and telemetry was unremarkable. On hospital day 2, patient was feeling well. He was thought safe for discharge. He was discharged to home with plan for additional cardiology followup. DISCHARGE MEDICATIONS: 1. Aspirin 81. 2. Plavix 75 mg daily. 3. Fish oil 1 capsule b.i.d. 4. Levothyroxine 50 mcg daily. 5. Lisinopril 5 mg daily. 6. Metformin 850 mg b.i.d. (on hold for 48 hours). 7. Lopressor 50 mg b.i.d. 8. Nitrostat sublingual tablets 0.4 mg p.r.n. 9. Ocuvite PreserVision 1 tab b.i.d. 10. Rosuvastatin 40 mg daily. 11. Garlic tabs 1 tab p.o. b.i.d. FOLLOWUP: The patient to follow up with cardiology clinic in 2-4 weeks. JANETD
== END 2016-12-23 10:41 | disposition home or self-care (01) ==
LOC: C.CATH 07:02 → C.2E 10:17
PROVIDERS: ADMIT Internal Medicine Interventional Cardiology; ATTEND Internal Medicine Interventional Cardiology
DX: I25.119 Atherosclerotic heart disease of native coronary artery with unspecified angina pectoris (principal); R55 Syncope and collapse; I10 Essential (primary) hypertension; E78.5 Hyperlipidemia, unspecified; Z79.82 Long term (current) use of aspirin; Z82.49 Family history of ischemic heart disease and other diseases of the circulatory system